=== PATIENT | female | born 1995 | race American Indian/Alaskan Native ===

== ENCOUNTER 2021-02-03 05:25 | Emergency (ER) | payer MEDICAID ==
[2021-02-03 06:26] LABS: Basophils % (Auto) 0.2 % (0.0-1.8); Eosinophils # (Auto) 0.1 K/mm3 (0.0-0.4); Eosinophils % (Auto) 1.2 % (0.0-4.3); Hematocrit 41.4 % (30.3-42.9); Hemoglobin 13.9 gm/dl (10.1-14.3); Lymphocytes # (Auto) 2.2 K/mm3 (1.2-5.4); Lymphocytes % (Auto) 26.9 % (13.4-35.0); Mean Corpuscular HGB Conc 34 % (30-34); Mean Corpuscular Volume 84 fl (79-97); Monocytes # (Auto) 0.6 K/mm3 (0.0-0.8); Monocytes % (Auto) 6.7 % (0.0-7.3); Platelet Count 345 K/mm3 (140-440); Red Blood Count 4.91 M/mm3 (3.65-5.03); Red Cell Distribution Width 14.2 % (13.2-15.2)
[2021-02-03 06:43] LABS: BUN/Creatinine Ratio 19; Blood Urea Nitrogen 15 mg/dL (7-17); Calcium 9.6 mg/dL (8.4-10.2); Hemolysis Index 13
[2021-02-03 08:39] LABS: Alanine Aminotransferase 9 units/L (7-56); Albumin 4.5 g/dL (3.9-5)
[2021-02-03 08:41] LABS: Bilirubin,Direct < 0.2 mg/dL (0-0.2)
--- NOTE | 2021-02-03 08:48 | Emergency Department Report ---
ED General Adult HPI - General Chief complaint: Nausea/Vomiting/Diarrhea Stated complaint: NAUSEA/VOMITING/DIARRHEA Time Seen by Provider: 02/03/21 07:37 Source: patient Mode of arrival: Ambulatory Limitations: No Limitations - History of Present Illness Initial comments: 25-year-old -[place] female patient without past medical history presents with complaints of intermittent watery diarrhea x3 weeks and one episode of vomiting yesterday. She reports the episodes occur every few days and that she has about 8-10 watery bowel movements a day. She denies any melena/hematochezia, hematemesis/coffee-ground emesis, fever/chills/sweats, abdominal pain, urinary symptoms, chest pain, shortness of breath, or history of abdominal surgeries. The diarrhea is not associated with certain foods per patient. She is not currently following with a PCP. -: Sudden - Related Data Previous Rx's Medication Instructions Recorded Last Taken Type metroNIDAZOLE 0.75%(NF) [Metrogel 1 applicatio TP BID #1 tube 05/03/15 Unknown Rx 0.75% TOPICAL] Loperamide [Imodium] 2 mg PO Q2HR PRN #14 capsule 02/03/21 Unknown Rx Allergies Allergy/AdvReac Type Severity Reaction Status Date / Time No Known Allergies Allergy Unverified 05/02/15 22:58 ED Review of Systems ROS: Stated complaint: NAUSEA/VOMITING/DIARRHEA Other details as noted in HPI Constitutional: denies: chills, fever, malaise ENT: denies: throat pain Respiratory: denies: shortness of breath Cardiovascular: denies: chest pain Endocrine: denies: excessive sweating Gastrointestinal: vomiting, diarrhea. denies: abdominal pain, constipation, hematemesis, melena, hematochezia Genitourinary: denies: urgency, dysuria, frequency, hematuria, discharge Skin: denies: lesions, change in color Neurological: denies: headache, weakness, numbness, paresthesias Hematological/Lymphatic: denies: swollen glands ED Past Medical Hx - Surgical History Additional Surgical History: TONSILS - Social History Smoking Status: Never Smoker Substance Use Type: None - Medications Home Medications: Home Medications Medication Instructions Recorded Confirmed Last Taken Type metroNIDAZOLE 0.75%(NF) [Metrogel 1 applicatio TP BID #1 tube 05/03/15 Unknown Rx 0.75% TOPICAL] Loperamide [Imodium] 2 mg PO Q2HR PRN #14 capsule 02/03/21 Unknown Rx ED Physical Exam - General Limitations: No Limitations General appearance: alert, in no apparent distress, obese - Head Head exam: Present: atraumatic, normocephalic - Eye Eye exam: Present: normal appearance. Absent: scleral icterus - Respiratory Respiratory exam: Present: normal lung sounds bilaterally. Absent: respiratory distress - Cardiovascular Cardiovascular Exam: Present: regular rate, normal rhythm - GI/Abdominal GI/Abdominal exam: Present: soft, normal bowel sounds. Absent: distended, tenderness, guarding, rebound, rigid, mass - Neurological Exam Neurological exam: Present: alert, oriented X3, normal gait - Psychiatric Psychiatric exam: Present: normal affect, normal mood - Skin Skin exam: Present: warm, dry, intact, normal color. Absent: rash, cyanosis, diaphoretic ED Medical Decision Making - Lab Data Result diagrams: 02/03/21 05:58 02/03/21 05:58 - Medical Decision Making 25-year-old -[place] female patient without past medical history presents with complaints of intermittent watery diarrhea x3 weeks and one episode of vomiting yesterday. She reports the episodes occur every few days and that she has about 8-10 watery bowel movements a day. She denies any melena/hematochezia, hematemesis/coffee-ground emesis, fever/chills/sweats, abdominal pain, urinary symptoms, chest pain, shortness of breath, or history of abdominal surgeries. The diarrhea is not associated with certain foods per patient. She is not currently following with a PCP. CBC, CMP, and lipase are without acute abnormalities. No abdominal tenderness to palpation noted on exam. Bowel sounds are normal. Vitals are normal. Recommend patient follows up with gastroenterology for further assessment. Patient is well-appearing and stable for discharge home. Discussed signs and symptoms that should prompt immediate return to the emergency department in detail with patient who verbalizes understanding. Critical care attestation.: If time is entered above; I have spent that time in minutes in the direct care of this critically ill patient, excluding procedure time. ED Disposition Clinical Impression: Intermittent diarrhea Disposition: DC-01 TO HOME OR SELFCARE Is pt being admited?: No Condition: Stable Instructions: Diarrhea, Adult, Probiotics Prescriptions: Loperamide [Imodium] 2 mg PO Q2HR PRN #14 capsule PRN Reason: Diarrhea Referrals: [facility] [Provider Group] - 3-5 Days
[2021-02-03 08:52] VITALS: BP 111/83
[2021-02-03 09:16] LABS: Bilirubin,Urine NEG (Negative); Blood,Urine NEG (Negative); Color,Urine Colorless (Yellow); Protein,Urine <15 mg/dL mg/dL (Negative); Urobilinogen,Urine < 2.0 mg/dL (<2.0)
== END 2021-02-03 09:49 | disposition home or self-care (01) ==
LOC: ED 05:25
DX: R19.7 Diarrhea, unspecified (principal); Z98.890 Other specified postprocedural states; Z79.899 Other long term (current) drug therapy
CPT/HCPCS: 36415; 80048; 80076; 81001; 83690; 84703; 85025

== ENCOUNTER 2021-09-13 13:17 | Emergency (ER) | payer MEDICAID ==
[2021-09-13 15:32] VITALS: BP 113/62
--- NOTE | 2021-09-13 15:54 | Emergency Department Report ---
Chief Complaint: Urogenital-Female Stated Complaint: IUD REMOVAL,PAIN AND BLEEDING Time Seen by Provider: 09/13/21 15:54 - HPI History of Present Illness: pt states [facility] sent her here for emergent IUD removal - ROS Review of Systems: no symptoms wants IUD removed and does not want to wait until 3-17- when she was scheduled by ob - Exam Vital Signs: Vital Signs 09/13/21 15:30 Temperature 98.3 F Pulse Rate 68 Respiratory 16 Rate Blood Pressure 113/62 [Right] O2 Sat by Pulse 100 Oximetry Physical Exam: a/o nad abd snt MSE screening note: Focused history and physical exam performed. Due to findings the following was ordered: I've spoke with . They did not send her here. She has an appnt tomorrow with ob. Pt educated on follow up in AM and MSE from ER. Vital Signs 09/13/21 15:30 Temperature 98.3 F Pulse Rate 68 Respiratory 16 Rate Blood Pressure 113/62 [Right] O2 Sat by Pulse 100 Oximetry ED Disposition for MSE Condition: Stable
== END 2021-09-13 15:55 | disposition home or self-care (01) ==
LOC: ED 13:17
DX: Z30.432 Encounter for removal of intrauterine contraceptive device (principal)
CPT/HCPCS: 99282